=== PATIENT | female | born 1975 | race Caucasian/White ===

== ENCOUNTER 2016-07-27 15:53 | Emergency (ER) | payer MEDICAID | END 2016-07-27 16:55 | disposition home or self-care (01) | LOC: D.ER 15:53 | DX: R10.9 Unspecified abdominal pain (principal) ==

== ENCOUNTER 2016-10-27 10:16 | Emergency (ER) | payer BC | END 2016-10-27 11:22 | disposition home or self-care (01) | LOC: D.ER 10:16 | DX: M79.605 Pain in left leg (principal); M79.604 Pain in right leg ==